=== PATIENT | female | born 1970 | race African-American/Black ===

== ENCOUNTER 2018-02-03 19:29 | Observation (INO) | payer OTHER, SELFPAY ==
[2018-02-03 20:32] LABS: Troponin I Less than 0.010 ng/mL (< 0.028)
[2018-02-03] MEDS ORDERED: Ondansetron HCl/PF 4 MG/2 ML Vial IVP PRN (21:58)
[2018-02-03] MEDS ORDERED: cloNIDine 0.1 MG TAB PO PRN (22:04)
[2018-02-03 22:46] VITALS: BMI 50.8
[2018-02-03 23:19] LABS: Troponin I Less than 0.010 ng/mL (< 0.028)
[2018-02-04 02:27] LABS: Troponin I Less than 0.010 ng/mL (< 0.028)
--- NOTE | 2018-02-04 02:35 | HP ---
PRIMARY CARE PHYSICIAN: Bakari Blanton M.D. CODE STATUS: FULL CODE. TIME OF EVALUATION: 9:25 p.m. CHIEF COMPLAINT: Chest pain. HISTORY OF PRESENT ILLNESS: This is a 47-year-old female patient with past medical history of LBBB, hypertension, obesity, came to the hospital after having chest pain, intensity 4/10. The pain started suddenly, it was on and off , when she was driving, no clear triggers, no alleviating factors. The pain is relieved by itself and associated with dizziness. REVIEW OF SYSTEMS: Constitutional: No fever, chills, or generalized weakness. Respiratory: No cough, sputum production, or shortness of breath. Cardiovascular: The patient reported chest pain, no palpitation. Gastrointestinal: No nausea, vomiting, diarrhea or abdominal pain. 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 Genitourinary: No burning on urination. Extremities: No leg swelling. All other systems were reviewed and were negative except for the findings mentioned above. PAST MEDICAL HISTORY: Positive for LBBB, hypertension, obesity. SURGICAL HISTORY: . PSYCHIATRIC HISTORY: Includes anxiety. FAMILY HISTORY : Reviewed and non contributory for current presentation. SOCIAL HISTORY: The patient drinks socially rarely. No drugs. Former tobacco user. ALLERGIES: PENICILLIN. REPORTED MEDICATIONS: Aspirin, amlodipine, lisinopril, hydrochlorothiazide, clonidine, ferrous sulfate, vitamin B12. PHYSICAL EXAMINATION: VITAL SIGNS: On presentation, blood pressure 177/96 with heart rate 65, respiratory rate was 16, pain was 0/10, oxygen saturation was 100% on room air. GENERAL APPEARANCE: The patient is alert and oriented, not in any acute distress. HEENT: Eyes: Normal conjunctivae. Moist oral mucosa. Anicteric. NECK: No JVD. RESPIRATORY: Bilateral air entry. No rales, no wheezing. Symmetric expansion. CARDIOVASCULAR: Normal rate, regular rhythm. No murmurs, no gallop. No edema. ABDOMEN: Soft, normal bowel sounds. MUSCULOSKELETAL: Baseline range of motion and strength. No tenderness. SKIN: Warm and intact. No pallor, no rash, no redness. Peripheral pulses are present. Capillary refill seems to be intact. NEUROLOGIC: Baseline sensory. No evidence of any new focal weakness. Baseline speech. Cranial nerves seem to be intact. PSYCHIATRIC: The patient is in good mood. No anxiety, oriented, optimal judgment. EKG: The patient has sinus arrhythmia at the rate of 74, LBBB that seems to be old. No evidence of any acute ischemic event. RADIOLOGY: Chest x-ray negative. LABORATORY DATA: Labs were reviewed. The patient has a white count of 4.3, hemoglobin 11, MCV 66 with platelet count 211. Chemistry: Sodium 136, potassium 3.8, chloride 104, carbon dioxide 22, anion gap 14, BUN 14, creatinine 0.8, GFR greater than 90. Glucose 79. LFTs are normal. CK 179, lipase 340. ASSESSMENT AND PLAN: The patient will be placed in the hospital with following medical problems. 1. Chest pain, rule out acute coronary syndrome. We will trend troponins, we will monitor on tele, the patient willing to go for a stress test in the morning. The last one was more than 2 years ago. 2. Elevated lipase. This is new for this patient from previous admission, we will do abdominal ultrasound, we will give IV fluids. We will repeat the lipase in the morning. In the differential remains pancreatitis as an etiology. We will rule out acute coronary syndrome more serious condition. 3. Obesity, advised to lose weight. 4. Uncontrolled high blood pressure. The systolic blood pressure 177 with diastolic 96 on presentation, patient was hypertensive, we will reconcile home medications, we will place the patient p.r.n. medications for optimal control. 5. Deep venous thrombosis prophylaxis. MTDD
[2018-02-04 05:15] LABS: Anion Gap 13 mmol/L (10-20); BUN (Urea Nitrogen) 14 mg/dL (7.0-18.7); Calc. Creatinine Clearance 196 mL/min (70-130); Carbon Dioxide 22 mmol/L (22-29); Chloride 107 mmol/L (98-107); Estimated GFR-MDRD Greater than 90; Glucose 83 mg/dL (70-105); Potassium 3.8 mmol/L (3.5-5.1); Sodium 138 mmol/L (136-145)
[2018-02-04 05:18] LABS: #Eosinphils 0.1 thou/uL (0.0-0.7); #Lymphocytes 1.5 thou/uL (1.20-3.40); #Monocytes 0.3 thou/uL (0.11-0.59); #Neutrophils 1.2 thou/uL (1.40-6.50); %Basophils 0.6 % (0.0-1.0); %Lymphocytes 47.9 % (21.0-51.0); %Monocytes 8.9 % (0.0-10.0); %Neutrophils 40.7 % (42.0-75.0); Hemoglobin 10.6 g/dL (12.0-16.0); Hypochromia SLIGHT = 6-15 cells (100X) (0-5/hpf); MDiff Complete? YES; Mean Corpuscular HGB CONC 32.2 g/dL (32.0-36.0); Mean Corpuscular Hemoglobin 20.6 pg (27.0-31.0); Mean Corpuscular Volume 63.9 fL (78.0-98.0); Mean Platelet Volume 5.2 fL (7.4-10.4); Microcytosis SLIGHT = 6-15 cells (100X) (0-5/hpf); PLT Morphology Comment Appears Adequate; Platelet Count 199 thou/uL (130-400); RBC Distribution Width 15.1 % (11.5-14.5); Red Blood Cell (RBC) Count 5.16 mill/uL (4.20-5.40); White Blood Cell (WBC) Count 3.1 thou/uL (4.8-10.8)
--- NOTE | 2018-02-04 08:47 | ULT ---
RIGHT UPPER QUADRANT ULTRASOUND: Date: 02/04/18 PROVIDED CLINICAL HISTORY: Elevated lipase. FINDINGS: The visualized portions of the pancreas and IVC appear normal. The liver demonstrates no mass or intr ahepatic biliary ductal dilatation. The common duct is not dilated. Gallbladder demonstrates no stone s, wall thickening, or pericholecystic fluid. Right kidney demonstrates no hydronephrosis or mass. IMPRESSION: Unremarkable right upper quadrant ultrasound. POS: AMBAR
[2018-02-04] MEDS ORDERED: Non-Formulary Item 1 EACH (Omeprazole [Omeprazole] 20 MG) PO SCH (09:00)
[2018-02-04] MEDS ORDERED: Enoxaparin Sodium 40 MG/0.4 ML SYRINGE SC SCH (09:00)
[2018-02-04] MEDS ORDERED: Furosemide 20 MG TAB PO SCH (09:00)
[2018-02-04] MEDS: Ferrous Sulfate 325 MG TAB PO SCH ×2 (09:38→17:17)
[2018-02-04] MEDS: Hydrochlorothiazide 25 MG TAB PO SCH (09:39)
[2018-02-04] MEDS: Aspirin 325 MG TAB PO SCH (09:39)
[2018-02-04] MEDS: Lisinopril 20 MG TAB PO SCH (09:39)
--- NOTE | 2018-02-04 10:49 | PDOC.EVN ---
Event Note - Event Note Event Note: Patient follows Dr Blanton. Care transferred to [facility].
[2018-02-04 11:11] LABS: ALT (SGPT) 19 U/L (8-55); AST (SGOT) 22 U/L (5-34); Albumin 3.5 g/dL (3.5-5.0); Alkaline Phosphatase 56 U/L (40-150); Bilirubin, Direct 0.2 mg/dL (0.1-0.3); Bilirubin, Total 0.5 mg/dL (0.2-1.2); Lipase 34 U/L (8-78); Protein, Total 6.4 g/dL (6.0-8.3)
--- NOTE | 2018-02-04 12:34 | PDOC.EVN ---
Event Note - Event Note Event Note: Patient care transferred to my team as patient's PCP is Dr. Dahl. Chart reviewed and discussed with patient. She is here with history of HTN and LBBB diagnosed years ago after episodes of chest pain at rest yesterday. Her enzymes are negative and her EKG is stable. She is undergoing cardiac stress testing currently. Await results of testing and further mgmt per that result. Her lipase was elevated at OSH but normal here and she has unremarkable U/S and no abdominal pain. Vitals stable and she has normal exam at the time of my examination.
--- NOTE | 2018-02-04 15:30 | PDOC.FM ---
- Subjective Subjective: CC: None offered. HPI: Patient's PCP is Dr. Blanton and was transferred to our service this morning from [facility]. Patient was admitted for CP r/o after experiencing chest pain yesterday afternoon. Has risk factors including HTN and obesity. Underwent day 1 of stress test today. States she experienced some mild chest discomfort during the examination but is currently pain free. - Objective MAR Reviewed: Yes Vital Signs & Weight: Vital Signs (12 hours) Temp Pulse Resp BP BP Pulse Ox 02/04/18 15:20 98.2 F 74 16 137/104 H 100 02/04/18 07:19 98.4 F 60 18 138/74 100 02/04/18 04:00 98.4 F 54 L 18 160/92 H 100 Weight Admit Weight 126.189 kg Weight 126.189 kg I&O: 02/03/18 02/04/18 02/05/18 06:59 06:59 06:59 Intake Total 560 Output Total 900 Balance -340 Result Diagrams: 02/04/18 04:02 02/04/18 04:02 EKG Reviewed by me: Yes Radiology Reviewed by me: Yes <Gerber Ren W - Last Filed: 02/04/18 15:27> - Objective Vital Signs & Weight: Vital Signs (12 hours) Temp Pulse Resp BP Pulse Ox 02/04/18 15:20 98.2 F 74 16 137/104 H 100 Weight Admit Weight 126.189 kg Weight 126.189 kg I&O: 02/03/18 02/04/18 02/05/18 06:59 06:59 06:59 Intake Total 560 400 Output Total 900 400 Balance -340 0 Result Diagrams: 02/04/18 04:02 02/04/18 04:02 <Ran Serrano R - Last Filed: 02/04/18 20:35> Phys Exam - Physical Examination Constitutional: NAD HEENT: moist MMs, sclera anicteric Neck: no nodes, no JVD Respiratory: no wheezing, clear to auscultation bilateral Cardiovascular: RRR, no significant murmur Gastrointestinal: soft, non-tender Musculoskeletal: no edema Neurological: non-focal, moves all 4 limbs Psychiatric: normal affect, A&O x 3 <Gerber Ren W - Last Filed: 02/04/18 15:27> Dx/Plan (1) Atypical chest pain Code(s): R07.89 - OTHER CHEST PAIN Status: Acute (2) Hypertension Code(s): I10 - ESSENTIAL (PRIMARY) HYPERTENSION Status: Acute Qualifiers: Hypertension type: essential hypertension Qualified Code(s): I10 - Essential (primary) hypertension - Plan Plan: 1. Atypical chest pain- will undergo resting portion of stress test tomorrow. PRN nitro available. final dispo pending stress test. 2. HTN- continue home meds. <Gerber Ren - Last Filed: 02/04/18 15:27> Attending Addendum - Attending Addendum Date/Time: 02/04/182033 I personally evaluated the patient and discussed the management with Dr. Ren. I agree with the History, Examination, Assessment and Plan documented above with any addition or exceptions noted below. please see event note dated 02/04/18 for further details. <Ran Serrano - Last Filed: 02/04/18 20:35>
[2018-02-04] MEDS: Acetaminophen 325 MG TAB PO PRN (17:38)
[2018-02-04] MEDS ORDERED: hydrOXYzine 25 MG TAB PO PRN (23:41)
[2018-02-04] MEDS ORDERED: Nitroglycerin 0.4 MG TAB (25 Tab Bottle) SL PRN (23:43)
[2018-02-05 00:25] LABS: CKMB 1.8 ng/mL (0-6.6); Troponin I Less than 0.010 ng/mL (< 0.028)
--- NOTE | 2018-02-05 05:21 | PDOC.FM ---
- Subjective Subjective: Ms Tao is a 47yo female with pmh of HTN, and obesity presenting with Atypical chest pain. No overnight events. Pt reports headache this morning. Denies Chest pain, SOB, n/v. Voiding and stooling. No other concerns. - Objective MAR Reviewed: Yes Vital Signs & Weight: Vital Signs (12 hours) Temp Pulse Resp BP Pulse Ox 02/05/18 03:03 97.9 F 69 18 122/64 98 02/04/18 23:09 98.3 F 74 24 H 151/74 H 98 02/04/18 19:45 97.9 F 75 16 126/77 100 Weight Admit Weight 126.189 kg Weight 125.464 kg I&O: 02/03/18 02/04/18 02/05/18 06:59 06:59 06:59 Intake Total 560 880 Output Total 900 1100 Balance -340 -220 Result Diagrams: 02/04/18 04:02 02/04/18 04:02 <Cindy Alaniz - Last Filed: 02/05/18 06:50> - Objective Vital Signs & Weight: Vital Signs (12 hours) Temp Pulse Resp BP Pulse Ox 02/05/18 07:55 98.4 F 62 18 169/94 H 100 02/05/18 03:03 97.9 F 69 18 122/64 98 02/04/18 23:09 98.3 F 74 24 H 151/74 H 98 Weight Admit Weight 126.189 kg Weight 125.464 kg I&O: 02/04/18 02/05/18 02/06/18 06:59 06:59 06:59 Intake Total 560 880 Output Total 900 1100 Balance -340 -220 Result Diagrams: 02/04/18 04:02 02/04/18 04:02 <Ran Serrano - Last Filed: 02/05/18 10:12> Phys Exam - Physical Examination Constitutional: NAD Respiratory: no wheezing, clear to auscultation bilateral Cardiovascular: RRR, no significant murmur Gastrointestinal: soft, non-tender, positive bowel sounds Musculoskeletal: no edema, pulses present Psychiatric: normal affect, A&O x 3 Skin: cap refill <2 seconds <Cindy Alaniz - Last Filed: 02/05/18 06:50> Dx/Plan (1) Atypical chest pain Code(s): R07.89 - OTHER CHEST PAIN Status: Acute (2) Hypertension Code(s): I10 - ESSENTIAL (PRIMARY) HYPERTENSION Status: Acute Qualifiers: Hypertension type: essential hypertension Qualified Code(s): I10 - Essential (primary) hypertension (3) Iron deficiency anemia Code(s): D50.9 - IRON DEFICIENCY ANEMIA, UNSPECIFIED Status: Chronic Qualifiers: Iron deficiency anemia type: unspecified iron deficiency Qualified Code(s) : D50.9 - Iron deficiency anemia, unspecified (4) Chest pain Code(s): R07.9 - CHEST PAIN, UNSPECIFIED Status: Resolved - Plan Plan: Ms Tao is a 47yo female with pmh of HTN, and obesity presenting with Atypical chest pain. Atypical chest pain - Heart score: 4 - Trops neg x4 - EKG with no ST changes - NPO for second part of stress test today - EKG for return of chest pain - PRN nitro for CP final HTN - On admission 177/96, now controlled at 122/64 - Continue home lisinopril, HCTZ, clonidine Elevated Lipase, resolved - Initially 340 - RUQ US with no abnormalities - Repeat lipase: 34 DVT ppx: SCDs Code Status: FULL Dispo: pending results of stress test today <Cindy Alaniz - Last Filed: 02/05/18 06:50> Attending Addendum - Attending Addendum Date/Time: 02/05/18 1012 I personally evaluated the patient and discussed the management with Dr. Alaniz. I agree with the History, Examination, Assessment and Plan documented above with any addition or exceptions noted below. Patient here and has been ruled out for ACS. Final result of stress testing pending. Further mgmt per result but anticipate discharge later today. <Ran Serrano - Last Filed: 02/05/18 10:12>
[2018-02-05] MEDS: Acetaminophen 325 MG TAB PO PRN (06:18)
[2018-02-05] MEDS: Ferrous Sulfate 325 MG TAB PO SCH ×2 (09:05→18:22)
[2018-02-05] MEDS: Lisinopril 20 MG TAB PO SCH (09:06)
[2018-02-05] MEDS: Hydrochlorothiazide 25 MG TAB PO SCH (09:06)
[2018-02-05] MEDS: Aspirin 325 MG TAB PO SCH (09:06)
--- NOTE | 2018-02-05 10:29 | NM ---
NUCLEAR MEDICINE CARDIAC STRESS AND EJECTION FRACTION AND WALL MOTION: HISTORY: Hypertension. Smoker. Left bundle branch block. Chest pain. TECHNIQUE: The patient was administered 28 mCi of technetium-99m sestamibi for rest imaging and 32 mCi of techne tium-99m sestamibi for stress imaging. Cardiac gating performed. FINDINGS: There is reversibility involving the mid anterior wall. Additionally, there appears to be some revers ibility involving the mid portion of the septum. TID is 1.24. End-diastolic volume is 143 mL. End-systolic volume is 63 mL. CARDIAC GATING: Normal motion and thickening. 66% ejection fraction. IMPRESSION: 1. Reversibility involving the anterior wall and septum. 2. 66% ejection fraction. POS: AMBAR
[2018-02-05] MEDS ORDERED: Communication Order-Pharmacy FS SCH (14:00)
[2018-02-06] MEDS: Lisinopril 20 MG TAB PO SCH (05:53)
[2018-02-06] MEDS: Aspirin 325 MG TAB PO SCH (05:53)
--- NOTE | 2018-02-06 06:53 | PDOC.FM ---
- Subjective Subjective: NAEO. Patient denies any SOB or N/V/D on exam. Does endorse some chest pain while moving back onto hospital bed from OR table after her catheterization. Endorses occasional reflux and/orhartburn symptoms. - Objective MAR Reviewed: Yes Vital Signs & Weight: Vital Signs (12 hours) Pulse Resp BP Pulse Ox 02/06/18 05:53 127/65 02/05/18 21:50 82 18 116/62 100 Weight Admit Weight 126.189 kg Weight 125.464 kg I&O: 02/04/18 02/05/18 02/06/18 06:59 06:59 06:59 Intake Total 573 771 2747 Output Total 900 1100 Balance -340 -220 1959 Result Diagrams: 02/04/18 04:02 02/04/18 04:02 Radiology Reviewed by me: Yes (Normal LHC.) Phys Exam - Physical Examination Constitutional: NAD HEENT: sclera anicteric Neck: supple, full ROM Respiratory: no wheezing, no rales, no rhonchi, clear to auscultation bilateral Cardiovascular: RRR, no significant murmur Neurological: non-focal, moves all 4 limbs Psychiatric: normal affect, A&O x 3 Skin: no rash, normal turgor Dx/Plan (1) Atypical chest pain Code(s): R07.89 - OTHER CHEST PAIN Status: Acute (2) Hypertensive emergency Code(s): I10 - ESSENTIAL (PRIMARY) HYPERTENSION Status: Acute (3) Hypertension Code(s): I10 - ESSENTIAL (PRIMARY) HYPERTENSION Status: Chronic Qualifiers: Hypertension type: essential hypertension Qualified Code(s): I10 - Essential (primary) hypertension (4) Iron deficiency anemia Code(s): D50.9 - IRON DEFICIENCY ANEMIA, UNSPECIFIED Status: Chronic Qualifiers: Iron deficiency anemia type: unspecified iron deficiency Qualified Code(s) : D50.9 - Iron deficiency anemia, unspecified - Plan Plan: Ms. Tao is a 47YOF with pmh of HTN and obesity who presented with a CC of chest pain. Atypical chest pain - Heart score: 4 on presentation & trops negx4. - EKG did not show any ischemic changes however stress test significant for R- sided & septal reversible changes. - LHC negative with no signs of ischemia. Cleared by cardiology. - Will continue PRN tylenol & nitro for CP. - Will continue ASA 325mg QD. HTN - BP on admission 177/96. Ranged between 130/69 to 116/62 overnight. Will continue to monitor. - Will continue home lisinopril, HCTZ, & clonidine. Elevated Lipase, resolved - Initially 340 but repeat down to 34. - RUQ US negative. No complaints of abdominal pain. - Recommend outpatient f/u w/ PCP. Microcytic anemia presumed to be 2/2 iron deficiency: - Recommend outpatient f/u w/ screening colonoscopy, endoscopy, and transvaginal U/S for sources of bleeding as well as transglutaminase Ab for screening for celiac disease as patient endorses compliance with home ferrous sulfate. - Hgb still only up to 10.2 this AM. DVT ppx: SCDs Code Status: FULL Dispo: Cleared for discharge home with recommendation to f/u w/ PCP within 1 week of discharge.
[2018-02-06] MEDS: Ferrous Sulfate 325 MG TAB PO SCH (07:27)
[2018-02-06] MEDS: Hydrochlorothiazide 25 MG TAB PO SCH (07:28)
--- NOTE | 2018-02-06 07:32 | CON ---
DATE OF CONSULTATION: 02/05/2018 HISTORY OF PRESENT ILLNESS: The patient is a 47-year-old woman who presents for evaluation of chest discomfort. The patient has no previous cardiac history. The patient states she was in usual state of health when she developed mid sternal chest discomfort. She describes this as a burning sensation in the middle of her chest. This persisted and she came to the emergency room for further evaluation. The patient denies having any present chest discomfort. The patient has several cardiac risk factors including hypertension and a strong family history of coronary artery disease. PAST MEDICAL HISTORY: Hypertension, sickle cell trait. PAST SURGICAL HISTORY: . SOCIAL HISTORY: She is a former smoker. ALLERGIES: PENICILLIN. MEDICATIONS ON ADMISSION: Aspirin 81 daily, lisinopril 25 mg daily, iron sulfate 325 b.i.d. FAMILY HISTORY: There is strong family history of heart disease in a brother who underwent coronary bypass surgery. REVIEW OF SYSTEMS: Ten-point system otherwise unremarkable. No history of easy bruising or bleeding, bright red blood per rectum. PHYSICAL EXAMINATION: GENERAL: This is a morbid obese woman in no acute distress. VITAL SIGNS: Blood pressure 130/73. NECK: Showed no jugular distention. LUNGS: Clear to auscultation. HEART: Regular rate and rhythm, normal S1, S2, no murmurs. ABDOMEN: Distended. EXTREMITIES: No edema. VASCULAR: Radial pulses are 2+, femoral pulses are 2+. LABORATORY RESULTS: Her white blood cell count 3.1, hemoglobin 10.6, hematocrit 33.0, platelets are 199. Sodium 138, potassium 3.8, chloride 107, bicarbonate 22, BUN 14, creatinine 0.7, troponin less than 0.01. Her Cardiolite stress test revealed her to have normal left ventricular ejection fraction 66% with ischemia of the anterior wall and septum. IMPRESSION: 1. Chest pain, possibly due to ischemic heart disease. 2. Abnormal stress test. 3. Hypertension. 4. Anemia. 5. Morbid obesity. This patient presents with chest pain and abnormal stress test. I have discussed the option of medical therapy versus invasive evaluation. The patient strongly prefers to proceed with cardiac catheterization. The risks and benefits have been explained to the patient including NM, bleeding, stroke, cardiac arrhythmias and cardiac . PLAN: Proceed with cardiac catheterization. JULIO CESAR
[2018-02-06] MEDS ORDERED: Lidocaine 1% (PF) 30 ML VIAL ONE (08:10)
[2018-02-06] MEDS ORDERED: Iopamidol 370 76% 100 ML VIAL ONE (08:25)
[2018-02-06] MEDS ORDERED: Midazolam HCl 2 mg/2 ml Vial ONE (09:37)
[2018-02-06] MEDS ORDERED: Acetaminophen/Codeine 30-300mg Tablet PO PRN ×2 (10:03)
[2018-02-06] MEDS ORDERED: Nitroglycerin 0.4 MG TAB (25 Tab Bottle) SL PRN (10:03)
[2018-02-06] MEDS ORDERED: traMADol HCl 50 MG TAB PO PRN (10:03)
[2018-02-06] MEDS ORDERED: Metoprolol Tartrate 5 MG/5 ML VIAL ONE (10:04)
[2018-02-06] MEDS ORDERED: Sodium Chloride 0.9% 200 ML IV SCH (10:15)
--- NOTE | 2018-02-06 13:02 | ADD-PRG ---
DATE OF SERVICE: 02/06/2018 This is an addendum to the note of Dr. Nicole Benitez. Ms. Tao has just returned from a heart cath which was normal. She is resting quietly and will ne ed to be at bed rest for the next 3 hours. I discussed her anemia at length with Dr. Benitez and alpesh her workup will be arranged as an outpatient. We need at least a serum ferritin. We also looked ovidio k and see that she has had this anemia for a couple of years and her hemoglobin has not risen much ab ove 10. We should likely screen her for celiac disease. She may likely need IV iron infusions in e future and she still needs a workup to find the etiology. I discussed with the residents the need for EGD, colonoscopy, and possibly a transvaginal ultrasound. This can all be arranged through her P CP as an outpatient.
[2018-02-06 15:27] VITALS: BP 123/61; TEMP 98.6
--- NOTE | 2018-02-07 01:08 | DIS-2 ---
DATE OF ADMISSION: 02/03/2018 DATE OF DISCHARGE: 02/06/2018 RESIDENT: Nicole Benitez M.D. ADMITTING ATTENDING/PERSONNEL: Rabia Reyes M.D. DISCHARGE ATTENDING: Sandro Casey M.D. CONSULTATIONS: Dr. Gerber Holder/cardiology on 02/05/2018. PROCEDURES: 1. Chest x-ray significant for mild cardiomegaly, unchanged from previous exam. 2. Abdominal ultrasound significant for an unremarkable right upper quadrant ultrasound. 3. Stress test nuclear medicine significant for reversibility involving the anterior wall and septum and an ejection fraction of 66%. 4. Left heart cardiac catheterization significant for no stenosis throughout with an estimated ejection fraction of 55%. PRIMARY DIAGNOSES: 1. Hypertensive emergency. 2. Atypical chest pain secondary to suspected anxiety. SECONDARY DIAGNOSES: 1. Hypertension. 2. Iron deficiency anemia. 3. Morbid obesity. DISCHARGE MEDICATIONS: 1. Clonidine 0.1 mg p.o. every 6 hours p.r.n. 2. Ferrous sulfate 325 mg p.o. b.i.d. 3. Atarax 50 mg p.o. q.6 hours p.r.n. 4. Lisinopril/hydrochlorothiazide 20 mg/12.5 mg tablets, 2 tablets p.o. daily. 5. Aspirin 81 mg daily. 6. Cyanocobalamin or vitamin B12, 2000 mcg p.o. daily. DISCONTINUED MEDICATIONS: None. HISTORY OF PRESENT ILLNESS AND HOSPITAL COURSE: The patient is a 47-year-old female with a past medical history significant for hypertension and obesity who presented to the hospital for evaluation of chest pain. She initially stated that the pain was 4/10 in intensity without any associated triggers or alleviating factors. Her initial blood pressure was noted to be elevated at 170/96 with a heart rate in the 70s. The patient was given 243 mg of aspirin p.o. and a chest x-ray was obtained which was significant only for mild cardiomegaly. An EKG and routine lab work including a CMP, CK, CBC and cardiac enzymes were also ordered. The patient's initial blood work was significant for a microcytic anemia with a hemoglobin of 11 & an MCV of 66.1. The patient's initial troponin was negative at less than 0.010 & was trended x3, all of which were negative. The patient's CK-MB was also within normal limits at 1.8. The patient's EKG was negative for any acute ischemic changes. Also of note, the patient's lipase was noted to be significantly elevated at a level of 340 upon presentation. This was followed up with an abdominal ultrasound which was negative for any acute intra- abdominal findings. The patient was therefore made n.p.o. after midnight with plans to proceed with a nuclear stress test the following morning. The patient' s stress test was noted to be positive showing reversibility involving the anterior wall and septum and a reduced ejection fraction of 66%. By this time, care was transferred from the admitting team, [facility], to [facility] as it was noted the patient's primary care provider was Dr. Bakari Blanton, a physician who [facility] admits for in the hospital. The patient's care was therefore resumed by attending Dr. Ran Serrano and the Family Medicine team, the morning of 02/04/2018. Therefore, due to the positive results of her stress test, Cardiology was consulted the following day. Dr. Aries Holder saw and evaluated the patient and offered the option to proceed with cardiac catheterization which the patient agreed to. The patient was therefore once again made n.p.o. after midnight and a left heart catheterization was performed on the morning of discharge on 02/06/2018. The cardiac catheterization was completely negative showing no signs of stenosis throughout with normal left ventricular function and an estimated ejection fraction of 55%. Therefore, after ruling out any cardiac cause or an acute coronary syndrome that could explain the patient's chest pain, she was therefore cleared for discharge by Cardiology and the medicine team. Of note, regarding the patient's iron deficiency anemia, the patient's hemoglobin downtrended from 11 to 10.6 during her hospitalization despite being compliant with her prescribed p.o. daily iron dose. She was therefore advised to follow up with her primary care provider within 1 week of discharge and consider undergoing a screening colonoscopy and possibly endoscopy as well as a transvaginal ultrasound to evaluate for the etiology of her iron deficiency anemia. She was also recommended to consider testing for celiac disease to evaluate for a course of decreased iron absorption. Regarding the patient's hypertensive emergency, after resuming her home meds on the floor, the patient's blood pressure remained much better controlled. She was therefore deemed to be hemodynamically stable & cleared for discharge home in stable condition on her home medications for HTN. DISPOSITION: Stable. DISCHARGE INSTRUCTIONS: 1. Location: Home. 2. Diet: Heart healthy diet, low sodium diet. 3. Activity: As tolerated. No restrictions. 4. Followup. The patient was then instructed to follow up with her primary care provider, Dr. Bakari Blanton within 7 days of discharge. JULIO CESAR
--- NOTE | 2018-02-10 09:28 | STRESS ---
Acquisition Time: 2018-02-04 11:05:11 Total Exercise Time: 00:04:00 Test Indications: CHEST PAIN Medications: Protocol: ADENOSINE Max HR: 114 BPM 66% of Pred: 172 BPM Max BP: 132/080 mmHG Max Work Load: 1.0 METS THE PATIENT WAS INJECTED WITH ADENOSINE. SHE DID DEVELOP CHEST PAIN. THE PATIENT HAD LBBB. THERE WAS NO SIGNIFICANT ST DEPRESSION. AWAIT NUCLEAR IMAGES FOR DEFINITIVE DIAGNOSIS. Confirmed by JOANN PATTERSON ([id number]), rewrite editor KHARI DENSON ([id number]) on 02/10/2018 9:28:07 AM Referred By: Confirmed By:JOANN PATTERSON
--- NOTE | 2018-02-11 11:31 | EKG ---
Test Reason : CHEST PAIN Blood Pressure : / mmHG Vent. Rate : 074 BPM Atrial Rate : 074 BPM P-R Int : 170 ms QRS Dur : 136 ms QT Int : 432 ms P-R-T Axes : 055 -02 -02 degrees QTc Int : 479 ms Sinus rhythm with marked sinus arrhythmia Left bundle branch block --old Abnormal ECG Confirmed by KARRIE RAMIREZ, KAYLYN ([id number]), state editor WILI ORNELAS ([id number]) on 02/11/2018 11:31:18 AM Referred By: Confirmed By:KAYLYN YOON MD
== END 2018-02-06 15:41 | disposition home or self-care (01) ==
LOC: ERS 19:29 → 2SW 19:40
PROVIDERS: ADMIT Hospitalist; ATTEND Hospitalist
PROC: B2111ZZ Fluoroscopy of Multiple Coronary Arteries using Low Osmolar Contrast (ICD-10-PCS; principal; 2018-02-06)
PROC: 4A023N7 Measurement of Cardiac Sampling and Pressure, Left Heart, Percutaneous Approach (ICD-10-PCS; 2018-02-06)
DX: I16.1 Hypertensive emergency (principal); R07.89 Other chest pain; I10 Essential (primary) hypertension; E66.01 Morbid (severe) obesity due to excess calories; D50.9 Iron deficiency anemia, unspecified; Z79.82 Long term (current) use of aspirin; Z79.899 Other long term (current) drug therapy; Z68.43 Body mass index [BMI] 50.0-59.9, adult
CPT/HCPCS: 36415; 76705; 78452; 80048; 80076; 82150; 82553; 83690; 84484; 85025; 93005; 93010; 93017; 93458; 96372; 99152; 99153; A9500; C1769; G0378; J0153; J1644; J1650; J2001; J2250; J2270

== ENCOUNTER 2018-08-24 18:24 | Inpatient (IN) | payer OTHER ==
[2018-08-24] MEDS ORDERED: Nitroglycerin 2% Ointment 1 INCH/1 GM Packet ONE (20:17)
[2018-08-24 22:40] LABS: Troponin I Less than 0.010 ng/mL (< 0.028)
[2018-08-24] MEDS ORDERED: Acetaminophen 325 MG TAB PO PRN (23:51)
[2018-08-24] MEDS ORDERED: HYDROcodone/Acetaminophen 5/325 mg Tablet PO PRN ×2 (23:51)
[2018-08-24] MEDS ORDERED: Ondansetron ODT 4 MG TAB SL PRN (23:51)
[2018-08-24] MEDS ORDERED: Ondansetron PF 4 MG/2 ML Vial IVP PRN (23:51)
[2018-08-25 00:23] VITALS: BMI 56.7
[2018-08-25] MEDS ORDERED: hydrOXYzine 25 MG TAB PO PRN (00:53)
[2018-08-25] MEDS ORDERED: cloNIDine 0.1 MG TAB PO PRN (00:53)
[2018-08-25] MEDS ORDERED: Amlodipine 10 MG TAB PO SCH ×3 (01:00→21:00)
[2018-08-25 01:30] LABS: Troponin I Less than 0.010 ng/mL (< 0.028)
--- NOTE | 2018-08-25 04:16 | HP ---
CHIEF COMPLAINT: Central chest pain. HISTORY OF PRESENT ILLNESS: Ms. Tao is a pleasant 48-year-old woman who has been presenting today with an episode of left-sided chest pain while driving, which she states lasted a few seconds and was a 6/10 in severity, described as a squeezing sensation. She states a few minutes later, she had recurrent pain only stronger at 10/10 in severity, again squeezing in nature and lasting a few seconds. Denies having any associated shortness of breath. She did feel clammy. Denies any nausea or vomiting. Has had no further chest pain since, but does report tenderness to the left side of her chest. Denies any recent coughing fits. She has been well in recent days. Denies any hemoptysis. Denies having any dizziness. She presented to the ER at [facility] and underwent investigations including laboratory studies, which showed negative troponin. She had a chest x-ray done that was unremarkable. She was transferred here for admission for ACS rule out. The patient is stable at present. She has a history of left bundle-branch block, which is noted on the EKG, otherwise no concerning EKG changes. She has undergone a stress test in the last year on 02/04/2018, which showed an EF of 66% and reversibility involving the anterior wall and septum. The patient was seen by Dr. Holder at that time and also underwent catheterization showing no stenosis in the cardiac arteries. REVIEW OF SYSTEMS: The patient reports she has been warm recent days. Again, denies having any cough or hemoptysis. She denies any abdominal pain or cramping. Denies any changes with her bowels. Denies having any urinary symptoms, though she admits to going frequently due to being on hydrochlorothiazide at home. Denies any dysuria or hematuria. All other review of systems except for those mentioned above in HPI are negative. Of note, the patient does report an episode of pain on the right pentecostalism, which was sharp and she felt diffuse discomfort around her scalp. She states it is something she has been treated for many years ago and states she was given a medication to dilate her arteries. She is unsure what medication that was and what exactly it was for. She does not recall if she had temporal arteritis or she was on a steroid. The patient denies any associated blurred vision. The pain has resolved on its own. ALLERGIES: PENICILLIN. CURRENT MEDICATIONS: 1. Multivitamin. 2. Hyzaar. 3. Amlodipine. 4. Ferrous sulfate. 5. Vitamin B12. 6. Aspirin chewable. 7. Hydroxyzine. 8. Clonidine. PAST MEDICAL HISTORY: 1. Hypertension. 2. Morbid obesity. 3. Iron deficiency anemia. 4. Previous smoker. 5. COPD. 6. Left bundle-branch block. 7. Anxiety. PAST SURGICAL HISTORY: 1. . 2. D and C. SOCIAL HISTORY: The patient drinks alcohol socially. Denies any illicit drug use. Reports smoking previously, but quit more than 10 years ago. PHYSICAL EXAMINATION: GENERAL: The patient appears obese, well-developed, in no acute distress. She is resting comfortably in bed. VITAL SIGNS: Temperature 97.8, pulse 75, respirations 16, O2 saturation 96% on room air, blood pressure 180/98. HEENT: Normocephalic and atraumatic. The patient without any tenderness to the scalp or temples. Pupils are equal, round, and reactive to light. Sclerae are without icterus. Oropharynx is clear. NECK: Supple. No lymphadenopathy. LUNGS: Clear to auscultation bilaterally without wheezes, rales, or rhonchi. CARDIAC: Regular rate and rhythm without audible murmurs, rubs, or gallops. Left-sided chest wall tenderness with palpation directly above the left breast. No palpable deformity or masses. ABDOMEN: Soft, nontender, nondistended. Obese. No guarding or rigidity. No renal angle tenderness. EXTREMITIES: No edema. NEUROLOGIC: Alert and oriented x3. SKIN: Without rash or jaundice. LABORATORY DATA: White blood count 3.5, hemoglobin 10.4, hematocrit 35.1, platelets 213. Sodium 136, potassium 3.6, chloride 106, carbon dioxide 22, anion gap 12, BUN 9, creatinine 0.74, GFR greater than 90, glucose 82, calcium 9.2, total bilirubin 0.5. LFTs unremarkable. CK 157, CK-MB 1.9. Troponin negative x3. Albumin 3.9. IMAGING DATA: Chest x-ray on 08/24/2018, no acute cardiopulmonary abnormality. IMPRESSION AND PLAN: Ms. Tao is a very pleasant 48-year-old woman who is being admitted for management of the followin. Chest pain. She is for acute coronary syndrome rule out given her past medical history and family history of coronary artery disease. The troponins are negative x3. EKG showed an old left bundle-branch block. Otherwise, no concerning changes. The patient is experiencing some chest wall tenderness, otherwise no chest pain at present. Denies any trauma, injuries, or recent cough. We will check D-dimer and if positive, we will obtain a CT angiogram to rule out pulmonary embolism. She had a normal catheterization in January [address] Holder. Day Team to decide if Cardiology input needed. Unlikely to be cardiac in nature. 2. Right-sided headache. The patient states similar episode many years ago, possibly treated for giant cell arteritis. No tenderness on exam. No vision changes. The patient is pain free at present. We will obtain CRP and ESR. 3. Hypertension. We will resume home medications and monitor blood pressure. Night time dose of amlodipine to be given now. Continue to monitor blood pressure. 4. Gastrointestinal prophylaxis. 5. Full code status. Her surrogate decision maker is her life partner, Mi Hsu. The patient's case was discussed with Dr. Urrutia, who agrees upon care as described above. Job ID: [id number]
[2018-08-25 05:24] LABS: Anion Gap 9 mmol/L (10-20); BUN (Urea Nitrogen) 13 mg/dL (7.0-18.7); Calc. Creatinine Clearance 184 mL/min (70-130); Calcium 8.8 mg/dL (7.8-10.44); Carbon Dioxide 26 mmol/L (22-29); Cardiac Risk 2.1 (Less than 4.5); Chloride 107 mmol/L (98-107); Cholesterol 159 mg/dl (< 200 Desired); Estimated GFR-MDRD 90; Glucose 112 mg/dL (70-105); HDL Cholesterol 74 mg/dL (>60 Neg Risk); LDL Cholesterol, Calculated 70 mg/dL; Sodium 138 mmol/L (136-145); Triglycerides 73 mg/dL (Less than 150)
[2018-08-25 05:28] LABS: #Eosinphils 0.1 thou/uL (0.0-0.7); #Lymphocytes 1.6 thou/uL (1.20-3.40); #Monocytes 0.4 thou/uL (0.11-0.59); #Neutrophils 1.6 thou/uL (1.40-6.50); %Basophils 0.3 % (0.0-1.0); %Eosinophils 1.9 % (0.0-10.0); %Lymphocytes 43.8 % (21.0-51.0); %Monocytes 9.6 % (0.0-10.0); %Neutrophils 44.4 % (42.0-75.0); Hypochromia SLIGHT = 6-15 cells (100X) (0-5/hpf); MDiff Complete? YES; Mean Corpuscular HGB CONC 32.4 g/dL (32.0-36.0); Mean Corpuscular Hemoglobin 20.3 pg (27.0-31.0); Mean Corpuscular Volume 62.6 fL (78.0-98.0); Mean Platelet Volume 6.1 fL (7.4-10.4); Microcytosis MODERATE=15-30 cells (100X) (0-5/hpf); Ovalocytes SLIGHT = 2-5 cells (100X) (0-1/hpf); Platelet Count 194 thou/uL (130-400); Platelet Morphology Comment Appears Adequate; RBC Distribution Width 15.2 % (11.5-14.5); Red Blood Cell (RBC) Count 4.94 mill/uL (4.20-5.40); Reflex for Review?? NO; White Blood Cell (WBC) Count 3.7 thou/uL (4.8-10.8)
[2018-08-25] MEDS: Aspirin Chewable 81 MG TAB PO SCH (08:47)
[2018-08-25] MEDS ORDERED: Famotidine/PF 20 mg/2ml Vial SLOW IVP SCH (09:00)
[2018-08-25] MEDS ORDERED: Ibuprofen 800 MG TAB PO SCH (10:00)
[2018-08-25] MEDS ORDERED: hydrALAZINE 20 MG/ML VIAL SLOW IVP PRN (15:49)
--- NOTE | 2018-08-25 17:11 | PRG ---
DATE OF SERVICE: 08/25/2018 SUBJECTIVE: The patient is seen and examined at bedside. She still has some discomfort in the left upper part of the chest. There is no nausea, no vomiting. She does not feel short of breath with this pain. OBJECTIVE: VITAL SIGNS: Blood pressure is 136/71, pulse is 67, temperature is 97.7, respiratory rate is 18, O2 saturation 97% on room air that is at 4 o'clock in the morning and at 8:45, her blood pressure is up to 181/81. HEENT: Head is atraumatic and normocephalic. Eyes are PERRLA. Sclerae are nonicteric. Oral mucosa is moist. NECK: Supple. LUNGS: Clear. HEART: S1 and S2 normal. No S3. No S4. No any murmur. ABDOMEN: Soft, obese, nontender. EXTREMITIES: No clubbing, cyanosis. 1+ peripheral edema on lower extremities. NEUROLOGIC: She is alert and oriented x4. There is no motor or sensory deficit present. Cranial nerves are intact. LABORATORY DATA: Labs showed white count of 3.7, hemoglobin 10.0, hematocrit 30.9, MCV 62.6, platelet count 194. Sodium of 130, potassium 4.0, chloride 107, CO2 of 26, BUN 13, creatinine 0.82, glucose 113. IMPRESSION AND RECOMMENDATIONS: 1. Chest pain with 3 troponin Is within normal limits. Normal cardiac catheterization. I believe this is going to be non-cardiac related. We will obtain echocardiogram. 2. Right-sided headache, tenderness on exam. was checked and it is less than 0.5 and sedimentation rate is 11. 3. Hypertension. We are going to give her amlodipine 10 mg in the morning instead of waiting for at bedtime and she was also given clonidine and will use hydralazine IV push as needed. Job ID: [id number]
[2018-08-25] MEDS: Famotidine 20 MG TAB PO SCH (20:09)
[2018-08-26] MEDS: Amlodipine 10 MG TAB PO SCH (09:21)
[2018-08-26] MEDS: Aspirin Chewable 81 MG TAB PO SCH (09:22)
[2018-08-26] MEDS: Famotidine 20 MG TAB PO SCH ×2 (09:22→20:30)
--- NOTE | 2018-08-26 17:20 | PRG ---
DATE OF SERVICE: 08/26/2018 SUBJECTIVE: The patient is seen and examined at the bedside. She does not have any chest pain anymore. OBJECTIVE: VITAL SIGNS: Blood pressure is 136/81, pulse is 82, temperature is 97.5, respirations 16, and O2 saturation is 95% on room air. HEENT: Her eyes are PERRLA. Sclerae are nonicteric. Oral mucosa is moist. NECK: Supple. LUNGS: Clear. HEART: S1, S2 distant. No S3. No S4. ABDOMEN: Obese. Bowel sounds are present. No organomegaly. EXTREMITIES: No clubbing, cyanosis, or edema. NEUROLOGICAL: She is alert and oriented x4. There is no any sensory or motor deficit present. Cranial nerves are intact. LABORATORY AND DIAGNOSTIC DATA: Labs, none. Echocardiogram was done and the results are pending. IMPRESSION: 1. Chest pain. Acute coronary syndrome was ruled out. The patient had echocardiogram done today, and we are awaiting for the report. As soon as report is available, we will let her know about the findings and send her home. 2. Headache. Temporal arteritis was ruled out with normal sedimentation rate. 3. Hypertension. Her blood pressure is improved, it is down to 130s and 140s, so we will continue current regimen and send her even tonight if the echo results are available. Job ID: [id number]
[2018-08-27] MEDS: Famotidine 20 MG TAB PO SCH (08:53)
[2018-08-27] MEDS: Amlodipine 10 MG TAB PO SCH (08:53)
[2018-08-27] MEDS: Aspirin Chewable 81 MG TAB PO SCH (08:54)
[2018-08-27 13:04] VITALS: BP 138/70; TEMP 97.9
--- NOTE | 2018-08-27 14:09 | DIS ---
DATE OF ADMISSION: 08/24/2018 DATE OF DISCHARGE: 08/27/2018 FINAL DIAGNOSES: 1. Atypical chest pain, coronary syndrome was ruled out. 2. Diastolic dysfunction per recent echocardiogram. 3. Headache, resolved. 4. Hypertension. HOSPITAL COURSE: The patient is a 48-year-old female, who was admitted to the hospital with central chest pain, which was atypical. She did not have shortness of breath. She did not feel clammy. She denied any nausea or vomiting. She presented to the emergency room at [facility] and underwent investigation including lab studies, which showed negative troponin. The chest x-ray was done, was unremarkable and she was transferred to our facility to rule out acute coronary syndrome. EKG showed left bundle-branch block, which is old. Apparently, she had cardiac catheterization done last year, which did not show any significant abnormalities, according to her after she had positive stress test done. This time, at the time of admission, her blood pressure was 180/98, so blood pressure was not controlled. Her pulse was 75. Her white count was 3.5, hemoglobin 10.4. Electrolytes were within normal limits. Creatinine 0.74. Troponin negative x3. The patient got admitted to the hospital. There was some concern about possible giant cell arteritis because of her headaches. CRP and sedimentation rate were done and came back within normal limits. She also underwent echocardiogram, which showed LVEF estimated at 50% to 55%, and suggestion was made by gate operator that she might have diastolic dysfunction along with mild mitral regurgitation and mild tricuspid regurgitation. It was technically difficult study with poor endocardial definition. The patient is seen and examined before she is discharged home. DIET: She is discharged on a heart healthy diet, low salt. ACTIVITIES: As tolerated. HOME MEDICATIONS: At the time of discharge, clonidine 0.1 mg q.6 hours p.r.n. as needed, aspirin 81 mg once a day, vitamin B12 2000 mcg daily, ferrous sulfate 325 mg daily, amlodipine 10 mg once a day, and losartan with hydrochlorothiazide 50/12.5 mg once a day one tablet. FOLLOWUP: She is going to follow up with Dr. Holder in 2 weeks, her primary gate operator, and the discharge time is less than 30 minutes. Job ID: [id number]
== END 2018-08-27 13:45 | disposition home or self-care (01) | DRG 313 ==
LOC: ERS 18:24 → 2NO 23:28
PROVIDERS: ADMIT Family Medicine; ATTEND Family Medicine
DX: R07.89 Other chest pain (principal); Z68.43 Body mass index [BMI] 50.0-59.9, adult; R51 Headache; I10 Essential (primary) hypertension; J44.9 Chronic obstructive pulmonary disease, unspecified; F41.9 Anxiety disorder, unspecified; I08.1 Rheumatic disorders of both mitral and tricuspid valves; E66.01 Morbid (severe) obesity due to excess calories; Z88.0 Allergy status to penicillin; Z79.82 Long term (current) use of aspirin; Z87.891 Personal history of nicotine dependence
CPT/HCPCS: 36415; 80048; 80061; 83880; 84443; 84484; 85025; 85379; 85652; 86140; 93005; 93306; S0028